=== PATIENT | female | born 1935 | race Hispanic/Latino ===

== ENCOUNTER → 2017-10-06 | Outpatient (CLI) | payer MEDICARE ==
--- NOTE | 2017-10-06 11:44 | Diagnostic Imaging Report ---
PROCEDURE:BONE DXA DUAL ENERGY INDICATION: Fractured humerus. The patient history questionnaire was completed and is available on PACS. COMPARISON:None. FINDINGS: Evaluation of the left hip and lumbar spine was performed utilizing DEXA Hologic bone densitometer. The study is technically adequate. The patient's fracture risk is compared to an age-matched control. Left femoral neck bone mineral density: 0.746 g/cm2, T-score is -1.1, Z-score is 1.3. Left total hip bone mineral density: 0.841 g/cm2, T-score is -0.9, Z-score is 1.3. Lumbar spine total bone mineral density: 0.949 g/cm2, T-score is -0.9, Z-score is 1.9. IMPRESSION: Bone mineralization by WHO Classification is osteopenia. The fracture risk is increased. Correlate clinically for the necessity and timing of the next bone mineral density study. Dictated by: Minor Bhatia M.D. on 10/06/2017 at 11:50 Electronically approved by: Minor Bhatia M.D. on 10/06/2017 at 11:50
== END ==
LOC: DX 10:09
PROVIDERS: ATTEND Specialist
DX: S42.232A 3-part fracture of surgical neck of left humerus, initial encounter for closed fracture (principal)
CPT/HCPCS: 77080